=== PATIENT | female | born 1975 | race Caucasian/White ===

== ENCOUNTER 2025-07-22 06:44 | Emergency (ER) | payer SELFPAY ==
[~2025-07-22] VITALS: Ht 165.1 cm; Wt 133.0 kg
[2025-07-22 06:49] VITALS: O2SAT 99
[2025-07-22 07:46] LABS: BASOPHILS % 0.3 % (0.0-2.0); EOSINOPHILS % 2.1 % (0.0-5.0); HEMATOCRIT. 42.9 % (36.0-48.0); HEMOGLOBIN. 13.9 g/dL (12.0-16.0); LYMPHOCYTES % 39.3 % (20.0-50.0); MONOCYTES % 5.3 % (2.0-8.0); NEUTROPHILS % 53.0 % (40.0-76.0); RED BLOOD CELL COUNT 5.02 mill/uL (4.2-5.4); RED CELL DISTRIBUTION WIDTH 13.7 % (11.6-14.6)
[2025-07-22 08:01] LABS: CREATININE 0.7 mg/dL (0.6-1.0)
[2025-07-22 08:02] LABS: UREA NITROGEN BLOOD 13 mg/dL (9-23)
[2025-07-22 09:25] VITALS: BP 126/61; PULSE 83; RESP 14; TEMP 36.5; O2SAT 98
[2025-07-22 10:13] LABS: PLATELET 206 x1000/uL (130-400)
== END 2025-07-22 09:26 | disposition home or self-care (01) ==
LOC: ER 06:44
DX: R04.0 Epistaxis (principal); E11.9 Type 2 diabetes mellitus without complications; Z88.6 Allergy status to analgesic agent
CPT/HCPCS: 36415; 80048; 85025; 99283